=== PATIENT | male | born 1955 | race African-American/Black ===

== ENCOUNTER 2020-05-13 01:55 | Emergency (ER) | payer BC ==
[~2020-05-13] VITALS: Ht 182.9 cm; Wt 82.0 kg
[2020-05-13] MEDS ORDERED: IBUPROFEN 600MG TABLET PO ONE (02:15)
[2020-05-13] MEDS ORDERED: IBUPROFEN 600MG TABLET ONE (02:40)
[2020-05-13 05:45] VITALS: BP 114/61
== END 2020-05-13 05:48 | disposition home or self-care (01) ==
LOC: ER 01:55
DX: M25.511 Pain in right shoulder (principal); X50.0XXA Overexertion from strenuous movement or load, initial encounter; Y93.B9 Activity, other involving muscle strengthening exercises; Y92.018 Other place in single-family (private) house as the place of occurrence of the external cause
CPT/HCPCS: 73030; 99283; A4565